=== PATIENT | female | born 1945 | race Caucasian/White ===

== ENCOUNTER 2023-06-14 08:00 | Outpatient (RCR) | payer MEDICARE, BC, SELFPAY ==
[2023-05-24 10:08] VITALS: BP 134/72; PULSE 83; RESP 18; TEMP 35.8; BMI 30.7
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
[2023-05-31 08:07] VITALS: BP 164/64; PULSE 101; RESP 18; BMI 30.7
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
[2023-06-07 08:37] VITALS: BP 159/71; PULSE 91; RESP 16; TEMP 35.6; BMI 30.7
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
[2023-06-14 08:04] VITALS: BP 151/71; PULSE 92; RESP 18; TEMP 36.3; BMI 30.7
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
== END 2023-06-17 23:59 | disposition home or self-care (01) ==
LOC: WC 08:00
PROVIDERS: PCP Preventive Medicine Occupational Medicine; Referring Provider Preventive Medicine Occupational Medicine; Visit Provider Student in an Organized Health Care Education/Training Program
DX: L97.212 Non-pressure chronic ulcer of right calf with fat layer exposed (principal); E11.9 Type 2 diabetes mellitus without complications; I87.2 Venous insufficiency (chronic) (peripheral); R60.0 Localized edema; S81.811D Laceration without foreign body, right lower leg, subsequent encounter; V89.2XXD Person injured in unspecified motor-vehicle accident, traffic, subsequent encounter
CPT/HCPCS: 11042; 15271; 99203; Q4186; G0463

== ENCOUNTER 2023-07-12 08:15 | Outpatient (RCR) | payer MEDICARE, BC, SELFPAY ==
[2023-06-18 00:50] VITALS: BP 151/71; PULSE 92; RESP 18; TEMP 36.3; BMI 30.7
[2023-06-21 08:16] VITALS: BP 166/87; PULSE 91; RESP 20; TEMP 36.7; BMI 30.7
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
[2023-06-28 08:15] VITALS: BP 130/52; PULSE 87; RESP 18; TEMP 36.3; BMI 30.7
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
[2023-07-05 08:17] VITALS: BP 153/60; PULSE 100; RESP 20; TEMP 36.4; BMI 30.7
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
[2023-07-12 08:13] VITALS: RESP 18; TEMP 36.3; BMI 30.7
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
== END 2023-07-17 23:59 | disposition home or self-care (01) ==
LOC: WC 08:15
PROVIDERS: PCP Preventive Medicine Occupational Medicine; Referring Provider Preventive Medicine Occupational Medicine; Visit Provider Student in an Organized Health Care Education/Training Program
DX: E11.622 Type 2 diabetes mellitus with other skin ulcer (principal); L97.212 Non-pressure chronic ulcer of right calf with fat layer exposed; I87.2 Venous insufficiency (chronic) (peripheral); R60.0 Localized edema; S81.811S Laceration without foreign body, right lower leg, sequela; V43.52XS Car driver injured in collision with other type car in traffic accident, sequela; M19.071 Primary osteoarthritis, right ankle and foot; M81.0 Age-related osteoporosis without current pathological fracture
CPT/HCPCS: 15271; Q4186

== ENCOUNTER 2023-08-09 10:00 | Outpatient (RCR) | payer MEDICARE, BC, SELFPAY ==
[2023-07-18 00:51] VITALS: BP 153/60; PULSE 100; RESP 18; TEMP 36.3; BMI 30.7
[2023-07-19 08:13] VITALS: BP 152/89; PULSE 96; RESP 18; TEMP 36.1; BMI 30.7
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
[2023-07-26 08:11] VITALS: BP 161/74; PULSE 93; RESP 20; TEMP 36.9; BMI 30.7
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
[2023-08-02 08:53] VITALS: RESP 18; BMI 30.7
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
--- NOTE | 2023-08-02 11:25 | WC ---
08/02/2023 (H) RIGHT LOWER EXT.
[2023-08-09 10:16] VITALS: BP 153/76; PULSE 90; RESP 20; TEMP 36.1; BMI 30.7
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
== END 2023-08-09 16:05 | disposition home or self-care (01) ==
LOC: WC 10:00
PROVIDERS: PCP Preventive Medicine Occupational Medicine; Referring Provider Preventive Medicine Occupational Medicine; Visit Provider Student in an Organized Health Care Education/Training Program
DX: L97.212 Non-pressure chronic ulcer of right calf with fat layer exposed (principal); E11.9 Type 2 diabetes mellitus without complications; S81.811S Laceration without foreign body, right lower leg, sequela; V43.52XS Car driver injured in collision with other type car in traffic accident, sequela; R60.0 Localized edema; M19.071 Primary osteoarthritis, right ankle and foot; M81.0 Age-related osteoporosis without current pathological fracture; I87.2 Venous insufficiency (chronic) (peripheral)
CPT/HCPCS: 11042; 15271; 99212; 99213; Q4186; G0463